=== PATIENT | male | born 1970 | race Caucasian/White ===

== ENCOUNTER 2023-06-21 06:55 | Day surgery (SDC) | payer BC, SELFPAY ==
--- NOTE | 2023-06-20 21:09 | W.PM.DSUDISC ---
Date of service: 06/21/23 Time of Service: 08:53 Discharge Plan Disposition Patient Disposition: Home Condition: Good Discharge Details Reason For Visit: Colonoscopy Attending Provider: Be Sherwood Primary Care Provider: Ruth Nathan Home Meds and New Rx's Prescriptions: Discontinued polyethylene glycol 3350 17 gram/dose powder 238 g PO ONCE Qty: 238 0RF Rx Instructions: take per colonoscopy instructions bisacodyl [Dulcolax (bisacodyl)] 5 mg tablet,delayed release (DR/EC) 5 mg PO ONCE Qty: 4 0RF Rx Instructions: take per colonoscopy instructions Discharge Instructions Instructions: Hemorrhoids (GEN) Additional Instructions: Jono, your colonoscopy went great. Hopefully you will feel wonderful this afternoon. I did not see any signs of tumors or polyps anywhere in the large intestine. The only thing that slightly out of the ordinary is some mild internal hemorrhoids. I have attached some general information here about hemorrhoids. My basic recommendation is to maintain a well-balanced diet that is rich in fiber, stay well-hydrated, and try to avoid prolonged periods on the toilet or symptoms of constipation. Generally, the hemorrhoids are a little more prominent after doing the bowel prep for the colonoscopy. In that regards, if they do not bother you much on a day-to-day basis, I do not think you need to do much differently. With regards to your next colonoscopy, you will need another one until 10 years. 1. If tolerated, consume a soft, low fiber diet for 1-2 days. 2. Do not drive, drink alcohol, operate machinery, make critical decisions, or do activities that require coordination or balance for 24 hours. 3. Because air was put into your colon during the procedure, expelling air from your rectum (passing gas or farting) is normal. 4. You may not have a bowel movement for 1-3 days because of the colonoscopy prep. This is normal. 5. Go directly to the emergency room if you notice any of the following: Develop chills (warm to touch), or if you have a thermometer and your temperature is above 101 Difficulty breathing or difficultly swallowing Persistent vomiting Severe abdominal pain, other than gas cramps Severe chest pain Black, tarry stools Any bleeding ? exceeding one tablespoon 6. Call your physician if the site where your intravenous was started becomes red, swollen, painful, and warm to touch. 7. Your physician has reviewed your pre-procedure medications. Please continue to take those medications as previously ordered. You will be given specific information/education regarding any changes to your medications before leaving. Activity:: Activity as Tolerated Diet:: As Tolerated Discharge Orders Discharge Orders: Discharge Order (Routine); Ordered 06/20/23 Ordered By: Be Sherwood DS: Diagnosis Discharge Diagnosis (1) Screen for colon cancer: Status: Acute Asessment and Plan: Negative screening colonoscopy; follow-up in 10 years
--- NOTE | 2023-06-20 21:10 | W.COLOREPORT ---
Date of service: 06/21/23 Time of Service: 08:54 Colonoscopy Report Date of procedure: 06/21/23 Pre-op diagnosis general: Screening colonoscopy Post-op diagnosis procedure note: other (Internal hemorrhoids) Procedure: Colonoscopy Surgeon: Be Sherwood Anesthesia Type: General:No Airway Estimated blood loss (mL): 0 Pathology: none sent Complications: None Disposition: same day Indications: Jono is a 52-year-old male who is here for screening colonoscopy Prep: Miralax/Dulcolax Procedure Start Time: 08:30 Procedure End Time: 08:41 Retraction Time: 6 Findings: Grade 2 internal hemorrhoids Procedure Description: After the induction of monitored anesthetic care, and with the patient in left lateral decubitus position, I began by performing an external anorectal exam.? Perineum and skin were normal, as was the anal verge.? There was mild prolapse of internal hemorrhoid. They reduce spontaneously.? Next, I performed a digital rectal exam.? This felt normal next, I advanced a colonoscope into the rectal vault.? I performed retroflexion.? Again noted were some mild internal hemorrhoids.? Using insufflation, I then advanced the colonoscope beyond the rectal folds and into the sigmoid colon before advancing towards the cecum.? The quality of the prep was outstanding.? The scope was noted to be in the cecum by identification of the ileocecal valve and appendiceal orifice.? I then began withdrawing the colonoscope using repeated irrigation as necessary for full evaluation of the colonic mucosa. ?Once the scope was withdrawn to the level of the rectum, great care was taken to examine portions of the rectal folds.? I saw no evidence of any tumors or polyps anywhere in the large intestine. Finally, the scope was withdrawn and the patient was brought to the same-day surgery recovery unit as the anesthetic wore off. ?The findings and instructions were shared with the patient prior to discharge.
[2023-06-21 06:58] VITALS: BP 134/95; PULSE 80; RESP 18; TEMP 36.1; O2SAT 96
--- NOTE | 2023-06-21 07:31 | ANES.PREOP_ITS ---
General Info Date of Service Date Performed: 06/21/23 Height: 5 ft 7 in Weight: 94.6 kg Body Mass Index (BMI): 32.6 Surgical Procedure: Operation Date: 06/21/23 08:20 Proposed Procedure Side Surgeon mary Sherwood MD Meds Allergies and Home Medications Allergies Allergy/AdvReac Type Severity Reaction Status Date / Time No Known Allergies Allergy Verified 06/21/23 07:17 Current Visit Medications: Current Medications Generic Name Dose Route Start Last Admin Trade Name Freq PRN Reason Stop Dose Admin Hyoscyamine Sulfate 0.125 mg 06/20/23 21:21 Hyoscyamine 0.125 Mg Sl/Oral/Chew SL 07/20/23 21:20 DIRECTED PRN Ringer's Solution 1,000 mls @ 80 mls/hr 06/21/23 06:00 IV 07/20/23 23:59 [facility] IV Miscellaneous Supplies 1 each 06/21/23 06:00 Iv Access IV 07/20/23 23:59 DIRECTED MELONIE Ondansetron HCl 4 mg 06/20/23 21:21 Ondansetron 4 Mg/2 Ml Vial IVP 07/20/23 21:20 Q4H PRN PRN Nausea / Vomiting Sodium Chloride 0 ml 06/21/23 06:00 Normal Saline Flush 10 Ml Syr IV 07/20/23 23:59 PRN PRN Sodium Chloride 0 ml 06/21/23 06:00 Normal Saline 10 Ml Vial IJ 07/20/23 23:59 DIRECTED PRN Sterile Water 0 ml 06/21/23 06:00 Water,Injection,Sterile 10 Ml Vial IJ 07/20/23 23:59 DIRECTED PRN PFSH Active Problems Active Problems: Problem Status Onset Code Screen for colon cancer Z12.11 Medical History Medical History History of ankle fracture History of palpitations (~11/2014) Per pt. states this has resolved Hyperlipidemia Hypertension Pt. states this has resolved. Surgical History Surgical History History of ankle surgery Hx of appendectomy Hx of shoulder surgery Tobacco Smoking/Tobacco Use Status: Never Alcohol Alcohol Intake: current Alcohol intake frequency: a few times a week Substance Use Substance use: Socially Substance use type: marijuana Vital Signs and Lab Results Vital Signs Most Recent Vital Signs in EMR: Most Recent Vital Signs Temp Pulse Resp BP Pulse Ox 36.1 C L 80 18 134/95 H 96 06/21/23 06:58 06/21/23 06:58 06/21/23 06:58 06/21/23 06:58 06/21/23 06:58 Lab Results Blood Type / Crossmatch: No Data to Display Complete Blood Count: No Data to Display Complete Metabolic Panel: No Data to Display Liver Function Panel: No Data to Display Coagulation Panel: No Data to Display Cardiac Panel: No Data to Display Arterial Blood Gas: No Data to Display Venous Blood Gas: No Data to Display Pancreas Panel: No Data to Display Thyroid Panel: No Data to Display Infectious Disease: No Data to Display Blood Cultures: No Data to Display Toxicology Panel: No Data to Display Anesthesia Assessment and Plan Anesthesia History Personal History: No History of Anesthesia Complications Family History: No Family History of Anesthesia Complications Exercise Tolerance Exercise Tolerance: Metabolic Equivalents>4 Cardiac & Pulmonary Exam Cardiac Exam: Normal S1/S2 Heart Sounds Pulmonary Exam: Clear Bilateral Breath Sounds Implantable Cardiac Device Does patient have a Pacemaker or an ICD?: No Airway Exam Known Difficult Airway: No Mallampati Class: 3 Mouth Opening: Normal (> 3cm) Thyromental Distance: Greater than 3 cm Neck Range of Motion: Full ROM Neck Circumference: Normal Teeth Condition: Normal Dentition ASA Classification ASA Score: ASA 2 Emergency Case?: No NPO Status NPO Status: NPO Clears >2 hours, Solids >8 hours Anesthesia Plan Resuscitation Status: Full Code Anesthesia Technique: General Anesthesia Airway Planned: Natural Airway Monitors Used: Standard Monitors Preoperative Comments:: 52 yo male for colo. Sig PMHx: never smoker, palpitations/HTN (resolved), occ EtOH/cannabis. Denies major GERD, however does take Rolaids around bedtime.
[2023-06-21 07:34] VITALS: BMI 32.6
[2023-06-21] MEDS: Lactated Ringers 1,000 ML 80 ML IV (07:40)
[2023-06-21 08:50] VITALS: BP 111/80; PULSE 88; RESP 18; TEMP 36; O2SAT 95
[2023-06-21 09:10] VITALS: BP 112/84; PULSE 79; RESP 18; TEMP 36.3; O2SAT 96
[2023-06-21 09:20] VITALS: BP 124/87; O2SAT 96
--- NOTE | 2023-06-21 10:18 | W.ANESPOSTOP ---
Postoperative Evaluation Date, Time and Location Date Performed: 06/21/23 Time Performed: 09:20 Patient Location: Day Surgery Unit Vital Signs Most Recent Imported Vital Signs: Most Recent Vital Signs Temp Pulse Resp BP Pulse Ox 36.3 C L 79 18 124/87 96 06/21/23 09:10 06/21/23 09:10 06/21/23 09:10 06/21/23 09:20 06/21/23 09:20 Pain Score Most Recent Pain Score: Most Recent Pain Score Pain Level 0 06/21/23 09:10 Assessment Mental Status: Awake (Alert & Oriented to Patient Baseline) Airway and Respiratory Function: Patent airway with normal (patient baseline) respiratory exam Cardiovascular Function: Hemodynamically Stable Hydration Status: Adequately Hydrated Nausea & Vomiting: No Nausea or Vomiting Pain: Pt. Denies Any Pain Peripheral Nerve Block: Patient did not receive a nerve block
== END 2023-06-21 09:20 | disposition home or self-care (01) ==
PROVIDERS: PCP Nurse Practitioner Family; Visit Provider Surgery
PROC: 0DJD8ZZ Inspection of Lower Intestinal Tract, Via Natural or Artificial Opening Endoscopic (ICD-10-PCS; CPT 45378; principal; 2023-06-21 08:15)
DX: Z12.11 Encounter for screening for malignant neoplasm of colon (principal); K64.8 Other hemorrhoids
CPT/HCPCS: 45378